=== PATIENT | female | born 1990 | race Asian ===

== ENCOUNTER 2017-08-26 11:49 | Emergency (ER) | payer BC ==
[~2017-08-26] VITALS: Ht 157.5 cm; Wt 54.0 kg
[2017-08-26] MEDS ORDERED: METH10TA6 PO (12:05)
[2017-08-26] MEDS ORDERED: PROP10TA PO (12:05)
[2017-08-26] MEDS ORDERED: SODIUM CHLORIDE FLUSH 10ML SYR IVF ONE (12:30)
[2017-08-26] MEDS ORDERED: SODIUM CHLORIDE 0.9% 1,000ML IVBOLUS ONE ×2 (12:30→15:00)
[2017-08-26 12:38] LABS: BASOPHILS # (AUTO) 0.01 x10^3/uL (0-0.1); BASOPHILS % (AUTO) 0 % (0-1); EOSINOPHILS # (AUTO) 0.02 x10^3/uL (0-0.4); EOSINOPHILS % (AUTO) 0 % (1-7); LYMPHOCYTES # (AUTO) 3.18 x10^3/uL (1-3.4); LYMPHOCYTES % (AUTO) 51 % (22-44); MD NO; MEAN CORPUSCULAR HEMOGLOBIN 23.3 pg (27.0-34.8); MEAN CORPUSCULAR HGB CONC 32.2 g/dL (32.4-35.8); MEAN CORPUSCULAR VOLUME 72.4 fL (80-100); MEAN PLATELET VOLUME 8.6 fL (7.4-10.4); MONOCYTES # (AUTO) 0.45 x10^3/uL (0.2-0.8); MONOCYTES % (AUTO) 7 % (2-9); NEUTROPHILS # (AUTO) 2.62 x10^3/uL (1.8-6.8); NEUTROPHILS % (AUTO) 42 % (42-75); PLATELET COUNT 344 x10^3/uL (130-400); RED BLOOD COUNT 6.16 x10^6/uL (3.82-5.3)
[2017-08-26 12:42] LABS: ANION GAP 6 mmol/L (5-15); CALCIUM 9.6 mg/dL (8.5-10.1); CHLORIDE 108 mmol/L (98-107); SALICYLATE LEVEL 3.7 mg/dL (2.8-20.0)
[2017-08-26 12:47] LABS: ALANINE AMINOTRANSFERASE 39 U/L (12-78); ALKALINE PHOSPHATASE 208 U/L (45-117); BILIRUBIN,TOTAL 0.7 mg/dL (0.2-1.0); CREATININE 0.53 mg/dL (0.55-1.02); TOTAL PROTEIN 8.5 g/dL (6.4-8.2)
[2017-08-26 12:52] LABS: ACETAMINOPHEN < 2 mcg/mL (10-30)
[2017-08-26 13:56] LABS: MICROSCOPIC NOT IND
[2017-08-26 13:58] LABS: CULTURE INDICATED? NO
[2017-08-26 14:07] LABS: AMPHETAMINE SCREEN, URINE Negative (Negative); BARBITURATE SCREEN, URINE Negative (Negative); BENZODIAZEPINE SCREEN, URINE Negative (Negative); CANNABINOID SCREEN, URINE Negative (Negative); COCAINE SCREEN, URINE Negative (Negative); METHADONE SCREEN, URINE Negative (Negative); OPIATE SCREEN, URINE Negative (Negative)
[2017-08-26 15:36] LABS: FREE T4 (FREE THYROXINE) 3.91 ng/dL (0.76-1.46)
[2017-08-26 15:39] LABS: THYROID STIMULATING HORMONE < 0.005 mIU/L (0.358-3.740)
[2017-08-26 15:46] VITALS: BP 116/63
== END 2017-08-26 16:40 | disposition home or self-care (01) ==
LOC: ED 15:01
DX: R53.83 Other fatigue (principal); R41.82 Altered mental status, unspecified; E05.90 Thyrotoxicosis, unspecified without thyrotoxic crisis or storm
CPT/HCPCS: 36415; 70450; 80053; 80307; 80329; 81003; 83605; 84439; 84443; 84703; 85025; 93005; 96360; 96361; 99285; J7030; G0480